=== PATIENT | female | born 1975 | race Caucasian/White ===

== ENCOUNTER → 2020-09-10 12:54 | Outpatient (CLI) | payer BC, SELFPAY ==
--- NOTE | ~2020-09-10 | XR_ITS ---
EXAMINATION: XR abdomen/kub 1V INDICATION: Right ureteral stone TECHNIQUE: Supine views of the abdomen were obtained on 2 radiographs. COMPARISON: None FINDINGS: There is a 2 mm calcification in the right pelvis which could be within the distal right ur eter. Additional pelvic calcifications have the appearance of phleboliths. The bowel gas pattern is n ormal. There are no dilated loops of bowel. IMPRESSION: 1. Possible right distal ureteral stone. Reviewed, dictated and finalized at location A.
== END ==
PROVIDERS: PCP Internal Medicine; Visit Provider Urology
DX: N20.1 Calculus of ureter (principal)
CPT/HCPCS: 74018

== ENCOUNTER 2020-09-12 01:52 | Day surgery (SDC) | payer BC, SELFPAY ==
[2020-09-11 08:40] VITALS: BMI 32.2
--- NOTE | 2020-09-11 10:04 | WPDANESEPPF ---
Anes - Initial Pre Proc Eval Procedure: Operation Date: 09/12/20 14:30 Proposed Procedures p Cystoscopy, Right Ureteroscopy, Right Stone Extraction - Ifeanyi Mcdaniel MD Date/Time: 09/11/20 10:04 Surgeon: Ifeanyi Mcdaniel MD Pre Op Diagnosis: Right UVJ Patient Data Age: 44 Gender: F Height: 1.6 m Weight: 82.55 kg Allergies Allergy/AdvReac Type Severity Reaction Status Date / Time No Known Allergies Allergy Verified 09/12/20 13:30 Home Medications Medication Instructions Recorded Confirmed Type ciprofloxacin HCl 250 mg PO BID 09/11/20 09/12/20 History magnesium 1 tablet PO DAILY 09/11/20 09/12/20 History tamsulosin 0.4 mg PO HS 09/11/20 09/12/20 History Patient hx anesthesia problems: none Family hx anesthesia problems: none [facility] [place] Past Medical History Medical History (Updated 09/11/20 @ 10:05 by José Malone DO) Endometriosis Migraine Palpitations PONV (postoperative nausea and vomiting) Surgical History Surgical History (Updated 09/11/20 @ 10:05 by José Malone DO) History of hysterectomy History of laparoscopic cholecystectomy History of tonsillectomy Social History Social History Smoking status: Never smoker Alcohol intake: current Alcohol use details: OCCASIONAL WEEKENDS Substance use: never Substance use type: does not use Living arrangements: with family Spiritual care concerns: No Anes - Eval Final PreProcedure Day of Procedure 09/11/20 10:04 Patient weight: obese Heart: regular rate and rhythm Lungs: clear to auscultation and normal air movement Airway: Mallampati scale class II Neurological: alert and oriented Last oral intake: >/= 8 hours ASA classification: II Emergent: no Anesthetic plan: proceed Anesthesia type and monitoring: general LMA and standard monitoring Informed Consent: The patient's anesthetic plan and its attendant risks and benefits were discussed with the patient/family/POA. Questions were solicited and answers provided to the satisfaction of the patient/family/POA.
--- NOTE | ~2020-09-12 | XR_ITS ---
EXAMINATION: XR fluoroscopy no charge EXAM DATE: 09/12/2020 14:27 INDICATION: Right ureteroscopy. TECHNIQUE: Fluoroscopy used during right ureteroscopy performed by Dr. Ifeanyi Mcdaniel MD. Radiol ogist was not present for the exam. Fluoroscopy was used with fluoroscopic time of 61 seconds. The D AP for this procedure was 215 radcm2. A total of 3 images sent to PACS from the exam. FINDINGS: Unremarkable gum mixer images. Correlate with procedure note. IMPRESSION: Fluoroscopy used during right ureteroscopy. Reviewed, dictated and finalized at location B.
--- NOTE | 2020-09-12 07:24 | WPDHPUPDATE1 ---
History and Physical Update Update Date/Time: 09/12/20 07:24 History and Physical has been reviewed, including an updated exam of the patient. There are NO changes in the patient's condition. Risks, benefits, and alternatives have been discussed and questions answered. Patient agrees to proceed with procedure.
[2020-09-12 13:32] VITALS: BP 124/65; PULSE 84; RESP 16; TEMP 36.7; O2SAT 100
[2020-09-12] MEDS: LACTATED RINGERS 1,000 ML 30 ML IV CONT (13:45)
[2020-09-12] MEDS: ceFAZolin 2 GM/D5W 50 ML 2 GM/50 ML BAG IVPB (14:00)
[2020-09-12] MEDS: LIDOCAINE HCL 2% GEL UROJET 10 ML PKG MUCOUS MEM (14:11)
[2020-09-12 14:30] VITALS: BP 122/65; PULSE 104; RESP 15; O2SAT 100
--- NOTE | 2020-09-12 14:36 | P.OP_ITS ---
Procedure Note - Detailed Date of procedure: 09/12/20 Pre-op diagnosis: Right distal ureteral stone Post-op diagnosis: other (Spontaneously passed right ureteral stone) Procedure performed: Cystoscopy, right ureteroscopy Description of procedure: this patient was brought to the operative suite where she was prepped and draped in routine sterile fashion while in a dorsal lithotomy position. This was done after the uneventful induction of a general anesthetic. Cystoscopy was undertaken with a 19 F rigid cystoscope. Bladder neck and urethra were endoscopically normal. Bladder mucosa was normal without evidence of intravesical foreign body or neoplasm. She had a single orthotopic ureteral orifice bilaterally. 0.035 in glidewire was advanced into the right ureter in the distal ureter was dilated with an 8 F 10 F dilator. Ureteroscopy was undertaken with a short tapered semi-rigid ureteral scope. There are no identifiable ureteral calculi. Ureteroscopy was undertaken to the mid ureter. There is an area of hyperemia where her stone was recently obstructing. Scopes and wires removed and she was taken recovery room good condition. Anesthesia: GLMA Surgeon: Ifeanyi Mcdaniel MD Veterans Service Representative: None Estimated blood loss (mL): 0 Drains: No Packing: No Pathology: none sent Complications: No immediate complications Condition: stable Disposition: PACU
[2020-09-12 15:00] VITALS: BP 143/66; PULSE 69; RESP 14
[2020-09-12 15:20] VITALS: BP 137/61; PULSE 70; RESP 16
== END 2020-09-12 15:45 | disposition home or self-care (01) ==
PROVIDERS: PCP Internal Medicine; Visit Provider Urology
PROC: (CPT 52352; principal; 2020-09-12 14:30)
DX: N20.1 Calculus of ureter (principal); N80.9 Endometriosis, unspecified; R00.2 Palpitations; E66.9 Obesity, unspecified; Z68.32 Body mass index [BMI] 32.0-32.9, adult
CPT/HCPCS: 52351; A9270; C1769; J0690; J1100; J2250; J2405; J2704; J3010; J7120

== ENCOUNTER 2024-08-04 10:04 | Outpatient (CLI) | payer OTHER, SELFPAY ==
--- NOTE | ~2024-08-04 | US_ITS ---
EXAMINATION: US thyroid DATE: 08/04/2024 11:45 INDICATION: Disorder of skin. TECHNIQUE: Multiple ultrasound images of the thyroid were obtained. COMPARISON: None. FINDINGS: The right thyroid lobe measures 5.6 x 1.3 x 1.9 cm. The left thyroid lobe measures 5.0 x 0.9 x 1.6 c m. In the right thyroid lobe, there is a 7 mm solid, hypoechoic, wider than tall nodule with smooth margin without echogenic foci (TI-RADS TR4). In the right thyroid lobe, there is a 3 mm nodule. IMPRESSION: 1. Small thyroid nodules, likely not clinically significant. No follow-up is needed. Reviewed, dictated and finalized at location A. IMPRESSION: 1. Small thyroid nodules, likely not clinically significant. No follow-up is ne eded.
--- OUTSIDE RECORDS SUMMARY | 2024-08-04 10:55 | XMS_ITS | Data Portability ---
Author Organization [facility] Address [address] [place] [address] Care Team Providers Care Locks Inspector Name Role Phone RANJITH BAGLEY Primary Care Provider [phone] Assessment Encounter Date Assessment Date Assessment LastModified by Organization Details LastModified Time 12/31/2023 12/31/2023 we will obtain blood work was told to stay up-to-date on mammograms colon cancer screenings dispensary clerk visits and immunizations follow up six-month [email or web address] Not available 01/01/2024 12:26:45 06/28/2024 06/28/2024 no clear-cut discernible lesion but she will get a thyroid ultrasound also modified barium swallow if that is negative consider ENT versus CT of the neck with contrast. Transderm scopolamine patch for motion sickness for a cruise. See me in 6 months. Low-fat diet. We are trying to obtain her dispensary clerk records Pap smear and mammogram [email or web address] Not available 06/28/2024 21:20:08 Plan of Treatment Reminders Order Date Submit Date Provider Last Modified By Organization Details Last Modified Time Details Appointments ANY 15 2024 03:15P Sukhdev Bagley MD Not available Not available Not available Lab CBC w/ auto diff 2023 024 [facility], [address] [facility], [place], [address], 01/08/2024 00:29:51 CMP, serum or plasma 2023 024 [facility], [address] , [place], [address], 01/08/2024 00:29:50 lipid panel, serum 2023 024 [facility], [address], [place], [address], 01/08/2024 00:29:49 noninvasi ve colorecta l cancer DNA + occult blood screening , QL, stool 2023 024 [facility] (Cologuard Orders Only), [address], [address], [place], [address], 02/06/2024 07:11:23 HbA1c (hemoglob in A1c), blood 2023 024 [facility], [address], [place], [address], 01/08/2024 00:29:51 Referral None recorded. Procedures None recorded. Surgeries None recorded. Imaging US, thyroid 2024 025 [facility], [address], [address], [place], [address], 07/27/2024 11:14:25 [place], modified barium swallow study 2024 025 [facility] (Imaging), [address], [place], [address], 07/27/2024 11:14:25 Medication Orders Transderm -Scop 1 mg over 3 days transderm al patch 2024 025 [id number], [address], [place], [place], [id number], 06/28/2024 21:09:31 Patient TargetsNo targets recorded. Patient Instructions Encounter Date Encounter Id Patient Instructions Last Modified By Organization Details Last Modified Time 06/28/2024 [id number] A healthy lifestyle: care instructions [email or web address] Not available 06/28/2024 21:09:31 Reason for Referral None Reported. Results Created Date Observation Date Name Description Value Unit Range Abnormal Flag Note LastModifiedBy Organization Detail LastModifiedTime 01/07/20 24 01/07/2024 LIPID PANEL , STAND JOSEPH cholesterol, total 204 mg/dL <200 high Not Available [facility] [address] [place], [address], 01/08/2024 00:29:49 01/07/2001/07/2024 LIPID PANEL , STAND JOSEPH HDL cholesterol 49 mg/dL > or = 50 low Not Available [facility] [address] [place], [address], 01/08/2024 00:29:49 01/07/2001/07/2024 LIPID PANEL , STAND JOSEPH triglyceride s 98 mg/dL <150 normal Not Available [facility] [place] [address] [place], [address], 01/08/2024 00:29:49 01/07/20 24 01/07/2024 LIPID PANEL , STAND JOSEPH LDL-choleste rol 135 mg/dL _(anila c) high Refer ence range : <100 Dickson able range <100 mg/dL for prima ry preve ntion ; <70 mg/dL for patie nts with CHD or diabe tic patie nts with > or = 2 CHD risk facto rs. LDL-C is now calcu lated using the Dari n-Hop kins augustinu ganesh n, which is a valid ated novel jordi santamaria accur acy than the Fried trenton equat ion in the estim ation of LDL-C . Dari serrano SS et al. SLIME. 2013; 310(1 9): 2061- 2068 (http ://ed ucati on.Qu Laisha TriplePulse. com/f aq/FA Q164) Not Available [facility] [address] [address] , [place], [address], 01/08/2024 00:29:49 01/07/20 24 01/07/2024 LIPID PANEL , STAND JOSEPH chol/HDLC ratio 4.2 (calc ) <5.0 normal Not Available [address], [address], 01/08/2024 00:29:49 01/07/20 24 01/07/2024 LIPID PANEL , STAND JOSEPH non HDL cholesterol 155 mg/dL _(anila c) <130 high For patie nts with diabe mukul plus 1 major ASCVD risk facto r, treat ing to a non-H DL-C goal of <100 mg/dL (LDL- C of <70 mg/dL ) is consi dered a thera peuti c optio n. Not Available [address], [address], 01/08/2024 00:29:49 01/07/20 24 01/07/2024 COMPR EHENS BERNARDO METAB OLIC PANEL glucose 89 mg/dL 65-99 normal Fasti ng refer ence inter hang Not Available [address], [address], 01/08/2024 00:29:50 01/07/20 24 01/07/2024 COMPR EHENS BERNARDO METAB OLIC PANEL urea nitrogen (BUN) 8 mg/dL 7-25 normal Not Available [address], [address], 01/08/2024 00:29:50 01/07/20 24 01/07/2024 COMPR EHENS BERNARDO METAB OLIC PANEL creatinine 0.69 mg/dL 0.50-1 .03 normal Not Available [address], [address], 01/08/2024 00:29:50 01/07/20 24 01/07/2024 COMPR EHENS BERNARDO METAB OLIC PANEL eGFR 106 mL/mi n/1.7 3m2 > or = 60 normal Not Available [facility] [address] [place], [address], 01/08/2024 00:29:50 01/07/20 24 01/07/2024 COMPR EHENS BERNARDO METAB OLIC PANEL BUN/creatini ne ratio SEE NOTE: (calc ) 6-22 Not Repor maury: BUN and Creat inine are withi n refer ence range . Not Available [address], [address], 01/08/2024 00:29:50 01/07/20 24 01/07/2024 COMPR EHENS BERNARDO METAB OLIC PANEL sodium 138 mmol/ L 135-14 6 normal Not Available [address], [address], 01/08/2024 00:29:50 01/07/20 24 01/07/2024 COMPR EHENS BERNARDO METAB OLIC PANEL potassium 3.9 mmol/ L 3.5-5. 3 normal Not Available [address], [address], 01/08/2024 00:29:50 01/07/20 24 01/07/2024 COMPR EHENS BERNARDO METAB OLIC PANEL chloride 106 mmol/ L 98-110 normal Not Available [address], [address], 01/08/2024 00:29:50 01/07/20 24 01/07/2024 COMPR EHENS BERNARDO METAB OLIC PANEL carbon dioxide 23 mmol/ L 20-32 normal Not Available [address], [address], 01/08/2024 00:29:50 01/07/20 24 01/07/2024 COMPR EHENS BERNARDO METAB OLIC PANEL calcium 9.4 mg/dL 8.6-10 .4 normal Not Available [address], [address], 01/08/2024 00:29:50 01/07/20 24 01/07/2024 COMPR EHENS BERNARDO METAB OLIC PANEL protein, total 6.5 g/dL 6.1-8. 1 normal Not Available [address] [place], [address], 01/08/2024 00:29:50 01/07/20 24 01/07/2024 COMPR EHENS BERNARDO METAB OLIC PANEL albumin 4.4 g/dL 3.6-5. 1 normal Not Available [address], [address], 01/08/2024 00:29:50 01/07/20 24 01/07/2024 COMPR EHENS BERNARDO METAB OLIC PANEL globulin 2.1 g/dL_ (calc ) 1.9-3. 7 normal Not Available [address], [address], 01/08/2024 00:29:50 01/07/20 24 01/07/2024 COMPR EHENS BERNARDO METAB OLIC PANEL albumin/glob ulin ratio 2.1 (calc ) 1.0-2. 5 normal Not Available [address], [address], 01/08/2024 00:29:50 01/07/20 24 01/07/2024 COMPR EHENS BERNARDO METAB OLIC PANEL bilirubin, total 0.6 mg/dL 0.2-1. 2 normal Not Available [address], [address], 01/08/2024 00:29:50 01/07/20 24 01/07/2024 COMPR EHENS BERNARDO METAB OLIC PANEL alkaline phosphatase 59 U/L 37-153 normal Not Available [facility] [place] [address] [place], [address], 01/08/2024 00:29:50 01/07/20 24 01/07/2024 COMPR EHENS BERNARDO METAB OLIC PANEL AST 19 U/L 10-35 normal Not Available [address], [address], 01/08/2024 00:29:50 01/07/20 24 01/07/2024 COMPR EHENS BERNARDO METAB OLIC PANEL ALT 22 U/L 6-29 normal Not Available [address], [address], 01/08/2024 00:29:50 01/07/20 24 01/07/2024 CBC (INCL UDES DIFF/ PLT) white blood cell count 4.8 thous and/u L 3.8-10 .8 normal Not Available [address], [address], 01/08/2024 00:29:51 01/07/20 24 01/07/2024 CBC (INCL UDES DIFF/ PLT) red blood cell count 4.93 karine on/uL 3.80-5 .10 normal Not Available [address], [address], 01/08/2024 00:29:51 01/07/20 24 01/07/2024 CBC (INCL UDES DIFF/ PLT) hemoglobin 14.6 g/dL 11.7-1 5.5 normal Not Available [address], [address], 01/08/2024 00:29:51 01/07/20 24 01/07/2024 CBC (INCL UDES DIFF/ PLT) hematocrit 46.0 % 35.0-4 5.0 high Not Available [address], [address], 01/08/2024 00:29:51 01/07/20 24 01/07/2024 CBC (INCL UDES DIFF/ PLT) MCV 93.3 fL 80.0-1 00.0 normal Not Available [address], [address], 01/08/2024 00:29:51 01/07/20 24 01/07/2024 CBC (INCL UDES DIFF/ PLT) MCH 29.6 pg 27.0-3 3.0 normal Not Available [address], [address], 01/08/2024 00:29:51 01/07/20 24 01/07/2024 CBC (INCL UDES DIFF/ PLT) MCHC 31.7 g/dL 32.0-3 6.0 low Not Available [address], [address], 01/08/2024 00:29:51 01/07/20 24 01/07/2024 CBC (INCL UDES DIFF/ PLT) RDW 12.6 % 11.0-1 5.0 normal Not Available [address], [address], 01/08/2024 00:29:51 01/07/20 24 01/07/2024 CBC (INCL UDES DIFF/ PLT) platelet count 215 thous and/u L 140-40 0 normal Not Available [address], [address], 01/08/2024 00:29:51 01/07/20 24 01/07/2024 CBC (INCL UDES DIFF/ PLT) MPV 10.8 fL 7.5-12 .5 normal Not Available [address], [address], 01/08/2024 00:29:51 01/07/20 24 01/07/2024 CBC (INCL UDES DIFF/ PLT) absolute neutrophils 2803 cells /uL 1500-7 800 normal Not Available [employer] [facility] [address], [address], 01/08/2024 00:29:51 01/07/20 24 01/07/2024 CBC (INCL UDES DIFF/ PLT) absolute lymphocytes 1546 cells /uL 850-39 00 normal Not Available [facility] [facility] [address], [address], 01/08/2024 00:29:51 01/07/20 24 01/07/2024 CBC (INCL UDES DIFF/ PLT) absolute monocytes 293 cells /uL 200-95 0 normal Not Available [address], [address], 01/08/2024 00:29:51 01/07/20 24 01/07/2024 CBC (INCL UDES DIFF/ PLT) absolute eosinophils 139 cells /uL 15-500 normal Not Available [address], [address], 01/08/2024 00:29:51 01/07/20 24 01/07/2024 CBC (INCL UDES DIFF/ PLT) absolute basophils 19 cells /uL 0-200 normal Not Available [address], [address], 01/08/2024 00:29:51 01/07/20 24 01/07/2024 CBC (INCL UDES DIFF/ PLT) neutrophils 58.4 % normal Not Available [facility] [facility] [address], [address], 01/08/2024 00:29:51 01/07/20 24 01/07/2024 CBC (INCL UDES DIFF/ PLT) lymphocytes 32.2 % normal Not Available [address], [address], 01/08/2024 00:29:51 01/07/20 24 01/07/2024 CBC (INCL UDES DIFF/ PLT) monocytes 6.1 % normal Not Available [address], [address], 01/08/2024 00:29:51 01/07/20 24 01/07/2024 CBC (INCL UDES DIFF/ PLT) eosinophils 2.9 % normal Not Available [address], [address], 01/08/2024 00:29:51 01/07/20 24 01/07/2024 CBC (INCL UDES DIFF/ PLT) basophils 0.4 % normal Not Available [facility] [address] [address], [place], [address], 01/08/2024 00:29:51 01/07/20 24 01/07/2024 HEMOG LOBIN A1C hemoglobin A1C 5.4 %_of_ total _HGB <5.7 normal For the purpo se of scree marleny for the prese nce of diabe mukul: <5.7% Consi stent with the absen ce of diabe mukul 5.7-6 .4% Consi stent with incre ased risk for diabe mukul (pred iabet es) > or =6.5% Consi stent with diabe mukul This assay resul t is consi stent with a decre ased risk of diabe mukul. Curre ntly, no conse nsus exist s lovely ayala use of hemog lobin A1c for diagn osis of diabe mukul in child lis. Accor jamie to Ameri can Diabe mukul Assoc iatio n (ADA) guide lines , hemog lobin A1c <7.0% repre sents optim al contr ol in non-p regna nt diabe tic patie nts. Diffe rent metri cs may apply to speci fic patie nt popul ation s. Stand ards of Medic al Care in Diabe mukul(A DA). This test was perfo rmed on the Ute skyler c503 platf orm. Effec tive , a dewayne e in test platf orms from the [facility]bot t Ar[employer] tect to the Ute skyler c503 may have shift ed HbA1c resul ts ana red to histo rical resul ts. Based on labor atory valid ation testi ng condu cted at [employer] , the Ute platf orm relat bernardo to the iOculiot t platf orm had an avera ge incre ase in HbA1c value of < or = 0.3%. This diffe rence is withi n accep maury varia bilit y estab lishe d by the Natio nal Glyco hemog lobin Stand ardiz ation Progr am. Note that not all indiv idual s will have had a shift in their resul ts and direc t ana rison s betwe en histo rical and curre nt resul ts for testi ng condu cted on diffe rent platf orms is not recom duglas d. Not Available [facility] [address], [place], [address], 01/08/2024 00:29:51 02/01/2002/01/2024 COLOG UARD cologuard result reportable NEGATI VE negati ve normal NEGAT BERNARDO TEST RESUL T. A negat bernardo Colog uard resul t indic ates a low likel ihood that a color ectal cance r (CRC) or advan desi adeno ma (jasen omato us polyp s with more advan desi pre-m align ant featu res) is prese nt. The chanc e that a perso n with a negat bernardo Colog uard test has a color ectal cance r is less than 1 in 1500 (nega tive predi ctive value >99.9 %) or has an advan desi adeno ma is less than 5.3% (nega tive predi ctive value 94.7% ). These data are based on a prosp ectiv e cross -sect ional study of 10,00 0 indiv idual s at [facility] risk for color ectal cance r who were scree favio with both Colog uard and colon oscop y. (Beena Hernandez et al, N Engl J Med 2014; 370(1 4):12 86-12 97) The aaron l value (refe rence range ) for this assay is negat bernardo. COLOG UARD RE-SC REENI NG RECOM MENDA TION: Perio dic color ectal cance r scree marleny is an impor tant part of preve ntive healt hcare for asymp tomat ic indiv idual s at [facility] risk for color ectal cance r. Follo wing a negat bernardo Colog uard resul t, the Ameri can Cance r Socie ty and U.S. Multi -Soci ety Task Force scree marleny guide lines recom mend a Colog uard re-sc madonna cronin inter hang of 3 years . Refer ences : Lupe can Cance r Socie ty Guide line for Color ectal Cance r Scree marleny: https ://jj w.can cer.o rg/ca ncer/ colon -rect al-ca ncer/ detec tion- diagn osis- stagi ng/ac s-rec ommen datio ns.ht ml.; Braulio DK, Taz bedoya CR, Crissy rich JK, Color ectal Cance r Scree marleny: Recom menda tions for Physi cians and Patie nts from the U.S. Multi -Soci ety Task Force on Color ectal Cance r Scree marleny , Dave jacksonntandrea rolog y 2017; 112:1 016-1 030. TEST DESCR IPTIO N: Tabor site algor ithmi c fernando sis of stool DNA-b lisandro pacheco with hemog lobin immun oassa y. Quant itati ve value s of indiv idual bioma rkers are not repor table and are not assoc iated with indiv idual bioma rker resul t refer ence range s. Colog uard is inten ded for color ectal cance r scree marleny of adult s of eithe r sex, 45 years or older , who are at [facility] for color ectal cance r (CRC) . Colog uard has been appro tam for use by the U.S. FDA. The perfo rmanc e of Colog uard was estab lishe d in a cross secti onal study of [facility] adult s aged 50-84 . Colog uard perfo rmanc e in patie nts ages 45 to 49 years was estim ated by janet-g tarap fernando sis of near- age group s. Colon oscop ies perfo rmed for a posit bernardo resul t may find as the most clini shelbi signi ficedgar t lesio n: color ectal cance r [4.0% ], advan desi adeno ma (incl uding sessi le mary maury polyp s great er than or equal to 1cm diame ter) [20%] or non- advan desi adeno ma [31%] ; or no color ectal neopl rubi [45%] . These estim ates are deriv ed from a prosp ectiv e cross -sect ional pretty farmer study of ,00 0 indiv idual s at [place] [facility] risk for color ectal cance r who were scree favio with both Colog uard and colon oscop y. (Beena Hernandez et al, N Engl J Med 2014; 370(1 4):12 86-12 97.) Colog uard may produ ce a false negat bernardo or false posit bernardo resul t (no color ectal cance r or preca ncero us polyp prese nt at colon oscop y follo w up). A negat bernardo Colog uard test resul t does not guara ntee the absen ce of CRC or advan desi adeno ma (pre- cance r). The curre nt Colog uard pretty farmer inter hang is every 3 years . (Amer ican Cance r Socie ty and U.S. Multi -Soci ety Task Force ). Colog uard perfo rmanc e data in a 0 patie nt pivot al study using colon oscop y as the refer ence metho d can be acces sed at the follo wing locat ion: www.e xactl abs.c om/re maite . Addit ional descr iptio n of the Colog uard test proce ss, warni ngs and preca ution s can be found at www.c ologu joseph.c om. Not Available [employer] (Cologuard Orders Only) [address], [place], [address], 02/06/2024 07:11:23 05/08/20 24 02/21/2019 pretty QUIJANO digit al, bilat eral No observ ation record ed. BARCODE Not Available 2023 20:07:20 05/08/20 24 02/17/2023 pretty QUIJANO digit al, bilat eral No observ ation record ed. BARCODE Not Available 2023 20:07:20 Result Notes None recorded. Problems Name Problem SNOMED Code Status Onset Date Resolution Date Notes Provider Name and Address Organization Details Recorded Time Lesion of neck 022733915 Active 2024 Low Ovalle MA null, [place] - [facility] 16:57:47 Motion sickness 12606738 Active 2024 Low Ovalle [place], [place] [facility] 16:57:48 Influenza vaccination declined 160309619 Active 2024 Ranjith Bagley MD Attn: Irvingin g,[address], [place], [address], [place] [facility] 21:19:57 Tetanus vaccination declined by patient 256721041 Active 2024 Ranjith Bagley MD Attn: Accountin g,[address], [place], [address], [place] [facility] 21:19:58 HIV screening declined 1093239398806 00 Active 2024 Ranjith Bagley MD Attn: Accountin g,[address], [place], [address], [place] [facility] 21:20:00 Pneumococca l vaccination declined 070092434 Active 2024 Ranjith Bagley MD Attn: Accountin g,[address] [facility], [place], [address], [place] [facility] 21:20:04 Problem Notes None recorded. Procedures Surgical History Date Name Laterality Status Provider Name and Address Organization Details Recorded Time 05/10/19 04 Total hysterectomy completed Chiqui Macedo [place] - [facility] 12/31/2023 12:36:58 05/10/18 97 Tubal Ligation completed JAYE Ferreira - [facility] 12/31/2023 12:36:49 05/10/18 79 Tonsillectomy completed JAYE Ferreira - [facility] 12/31/2023 12:36:36 Imaging Results Imaging Date Name Status LastModified by [facility] Details LastModified Time 02/21/2019 MAMMO, screening, digital, bilateral completed BARCODE Information not available 05/08/2024 20:07:20 02/17/2023 MAMMO, screening, digital, bilateral completed BARCODE Information not available 05/08/2024 20:07:20 Procedure Notes None recorded. Medical Equipment None Reported. Allergies No known drug allergies Medications Name Sig Start Date Stop Date Status Note LastModified by Organization Details LastModified Time scopolamine 1 mg over 3 days transdermal patch APPLY 1 PATCH TO THE SKIN BEHIND THE EAR 4 HOURS BEFORE LEAVING AND CHANGE EVERY 72 HOURS active Not Available Not Available No t Available mecobalamin (vitamin B12) 10,000 mcg solution for injection Take by injection route. active Not Available Not Available No t Available semaglutide (weight loss) active Stated she is taking the 1.5 but don't see a 1.5mg Not Available Not Available Not Available Vitals Date Recorded Body height Body mass index (BMI) Body weight Heart rate Oxygen saturation Oxygen saturation in Arterial blood by Pulse oximetry Systolic blood pressure Diastolic blood pressure Provider Name and Address Organization Details Last Updated DateTime 4 160.02 cm 28.6 kg/m2 25034.8 1 g 91 /min 98 % 98 % 130 mm[Hg] 70 mm[Hg] Chiqui Macedo MA [facility] 4 12:39:45 Date Recorded Body height Body mass index (BMI) Body weight Heart rate Oxygen saturation Oxygen saturation in Arterial blood by Pulse oximetry Systolic blood pressure Diastolic blood pressure Provider Name and Address Organization Details Last Updated DateTime 5 160.02 cm 26.6 kg/m2 39449.8 6 g 84 /min 98 % 98 % 110 mm[Hg] 76 mm[Hg] Leida Figueroa MA [facility] 5 16:13:34 Social History Question Answer Notes LastModified by Organizat ion Details LastModified Time Tobacco Smoking Status Never Smoker Chiqui Macedo MA null, [facility] 12/31/2023 12:34:50 Do You Have An Advance Directive? No Information not available 12/31/2023 What Is Your Level Of Alcohol Consumption? Occasional Information not available 12/31/2023 How Many Years Have You Consumed Alcohol? 30 Information not available 12/31/2023 Are You Blind Or Do You Have Difficulty Seeing? Yes Contacts Information not available 12/31/2023 What Is Your Level Of Caffeine Consumption? Occasional Information not available 12/31/2023 In The 14 Days Before Symptom Onset, Have You Had Close Contact With A Laboratory-confi rmed COVID-19 While That Case Was Ill? No Information not available 12/31/2023 In The 14 Days Before Symptom Onset, Have You Had Close Contact With A Person Who Is Under Investigation For COVID-19 While That Person Was Ill? No Information not available 12/31/2023 Have You Been To An Area Known To Be High Risk For COVID-19? No Information not available 12/31/2023 Are You Currently Employed? Yes Information not available 12/31/2023 Are You Deaf Or Do You Have Serious Difficulty Hearing? No Information not available 12/31/2023 What Type Of Diet Are You Following? 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 No Information not available 12/31/2023 What Was The Date Of Your Most Recent Tobacco Screening? 06/28/2024 [email or web address] Information not available 06/28/2024 What Is Your Relationship Status? Information not available 12/31/2023 Do You Use Your Seat Belt Or Car Seat Routinely? Yes Information not available 12/31/2023 Do You Have Smoke And Carbon Monoxide Detectors In Your Home? Yes Information not available 12/31/2023 Do You Feel Stressed (tense, Restless, Nervous, Or Anxious, Or Unable To Sleep At Night)? [id number] Sleeping At Night Information not available 12/31/2023 Do You Use Any Illicit Or Recreational Drugs? No Information not available 12/31/2023 Do You Use Sunscreen Routinely? Yes Information not available 12/31/2023 Has Tobacco Cessation Counseling Been Provided? No Information not available 12/31/2023 Do You Or Have You Ever Used Any Other Forms Of Tobacco Or Nicotine? No Information not available 12/31/2023 Sex: Female Functional Status Question Answer Note LastModified by Organization D etails LastModified Time Are you able to care for yourself? Yes Information n ot available 12/31/2023 What is your exercise level? None Information not available 12/31/2023 Mental Status None recorded. Family History Nothing Reported. Medical History Condition Response Coronary Artery Disease N Other N High Blood Pressure N Atrial Fibrillation N Thyroid Problems N Kidney or Bladder Problems N Depression N COPD N Blood Clots N GI Problems N Have you had a mammogram in the last yea r? N Skin Problems N Anemia N Heart Attack (NM) N Anxiety Disorder N Diabetes N Muscle, Joint, or Bone Problems N Seizures/Epilepsy N Have you had a colonoscopy in the last 1 0 years? N Acid Reflux (GERD) N Cancer N Stroke N Asthma N Allergies N Have you had a PSA blood test in the las t year? N High Cholesterol N Hepatitis N Liver Disease N Headaches N Osteoporosis N Heart Failure N Gynecological History Statement/Question Response If Post Menopausal, Age at Menopause 27 Obstetrics History GPAL:G 2 P 2 0 0 2 Type Value Full Term 2 Living 2 Total 2 Immunizations Vaccine Type Date Status Note Provider Nam e and Address Organization Details Recorded Time COVID-19, mRNA, LNP-S, PF, 30 mcg/0.3 mL dose 11/18/2020 completed JAYE [place]ell, [place] - [facility] 06/28/2024 16:06:27 COVID-19, mRNA, LNP-S, PF, 30 mcg/0.3 mL dose 12/09/2020 completed Leida Figueroa [place] null, [place] - [facility] 06/28/2024 16:06:27 COVID-19, mRNA, LNP-S, PF, 30 mcg/0.3 mL dose, elmer-sucrose 06/17/2021 completed Leida Figueroa [place] null, [place] - [facility] 06/28/2024 16:06:27 Past Encounters Encounter ID Performer Location Encounter Start Date Encounter Closed Date Diagnosis/Indication Diagnosis SNOMED-CT Code Diagnosis ICD10 Code Diagnosis Note [id number] MD Belen Marino (Adult Med) [address] [place] [address] 12/31/2023 12:01:36 12/31/2023 13:32:10 Obesity 972490853 E66.9 Diabetes m ellitus screening 534953416 Z13.1 Screening for cardiovascular system disease 546848770 Z13.6 Screening for malignant neoplasm of colon 964543030 Z12.11 [id number] Ranjith Bagley MD [facility] (Adult Med) [address] [place] [address] 06/28/2024 15:51:45 06/28/2024 17:00:39 Body mass index 25-29 - overweight 500333499 Z68.26 Overweight 184823738 E66 .3 Lesion of neck 731124689 L98.9 Motion sickness 19908759 T75.3XXA Pneumococc al vaccination declined 477521420 Z28.21 HIV screen ing declined 4757197396 33745 Z53.20 Tetanus va ccination declined by patient 871470756 Z28.21 Influenza vaccination declined 102478746 Z28.21 Health Concerns Section Related Observation LastModified by Organization Detai ls LastModified Time None Recorded Concern Status LastModified by Organization Details LastModified Time None Recorded Advance Directives Directive N: Payers Encounter Date Sequence Insurance Name Policy Number Policy Oshea Covered Member ID Oshea Member ID Guarantor Name 12/31/2023 1 [facility] [id number] Sandy Ni [id number] Sandy Ni 06/28/2024 1 [facility] [id number] Sandy Ni [id number] Sandy Ni Notes Date Note Type Note Provider Name and Address Organization Details Recorded Time 12/31/2023 text/html 48-year-old come s in reestablishing care obesity taking generic semaglutide has lost about 30 or 40 lb also taking some B12 injection meds semaglutide and B12 denies allergies surgeries family history of hypertension mild alcohol use no tobacco Ranjith Bagley MD Attn: Accounting, 1 [facility], [place], [address], [place] [facility] 01/01/2024 12:27:04 06/28/2024 text/html hyperlipidemia i s trying to follow a low-fat diet. Going on a cruise and needs she needs some medicine for motion sickness. She has also described when she is lying down and turns her head to the left that she notices some pain and discomfort left side of her neck worse with swallowing and she has been on GLP 1 inhibitors Ranjith Bagley MD Attn: Accounting,[address] [facility], [place], [address], [facility] - [facility] 06/28/2024 21:20:28 OBGyn Episode No OBEpisode recorded.
--- OUTSIDE RECORDS SUMMARY | 2024-08-04 10:55 | XMS_ITS | CONTINUITY OF CARE DOCUMENT ---
Author Name lavon doll Address Unknown Organization [facility] Address [id number] [place] [address] [address] [place] [address] Phone [phone] Care Team Providers Care Supervisor Cutting Department Name Role Phone Reid HACKETT, Paulo Unavailable [phone] RANJITH SMALLWOOD MD Unavailable RANJITH SMALLWOOD MD Unavailable PROBLEMS Condition Status Date Provider Notes Chest pain active Chio Chrun INS[employer]ANCE PROVIDERS Payer name Policy type / Coverage type [place] red constitution party ID [facility] Blue [facility] [id number] HISTORY OF PROCEDURES Procedure Date Procedure Name Provider Procedure Notes S tatus Event Monitor Paulo mendiola
== END 2024-08-04 10:05 | disposition home or self-care (01) ==
PROVIDERS: PCP Internal Medicine; Visit Provider Internal Medicine
DX: E04.2 Nontoxic multinodular goiter (principal)
CPT/HCPCS: 76536

== ENCOUNTER 2024-08-15 08:57 | Outpatient (CLI) | payer OTHER, SELFPAY ==
--- NOTE | ~2024-08-15 | XR_ITS ---
MODIFIED ESOPHAGRAM HISTORY: Lesion of neck TECHNIQUE: Modified barium esophagram was performed on 08/15/2024. I administered fluoroscopy and perfo rmed the exam with speech pathologist. Patient was seated for lateral fluoroscopic imaging for inges tion of thin liquids, pudding, solids and quantified amounts, followed by thin liquids in uncontrolle d amounts. This was recorded on tape. A single fluoroscopic spot image was also recorded. The DAP for this procedure was explained 806 Gycm2. The amount of fluoroscopy time used during this procedure wa s 1.2 minutes. FINDINGS: Oral stage: Adequate function. Pharyngeal stage: Adequate function. Cervical/esophageal stage: Adequate function. IMPRESSION: Patient tolerated regular consistency oral feedings in the upright position. Please ruben elate with speech pathologist findings and specific feeding recommendations. Reviewed, dictated and finalized at location B. IMPRESSION: Patient tolerated regular consistency oral feedings in the upright position. Please correlate with speech pathologist findings and specific feedi ng recommendations.
--- OUTSIDE RECORDS SUMMARY | 2024-08-15 09:29 | XMS_ITS | Data Portability ---
Author Organization [facility] Address [address] [place] [address] Care Team Providers Care Customer Experience Retail Clerk Name Role Phone RANJITH BAGLEY Primary Care Provider Assessment Encounter Date Assessment Date Assessment LastModified by Organization Details LastModified Time 12/31/2023 12/31/2023 we will obtain blood work was told to stay up-to-date on mammograms colon cancer screenings assistant softball coach visits and immunizations follow up six-month [email or web address] Not available 01/01/2024 12:26:45 06/28/2024 06/28/2024 no clear-cut discernible lesion but she will get a thyroid ultrasound also modified barium swallow if that is negative consider ENT versus CT of the neck with contrast. Transderm scopolamine patch for motion sickness for a cruise. See me in 6 months. Low-fat diet. We are trying to obtain her assistant softball coach records Pap smear and mammogram [email or web address] Not available 06/28/2024 21:20:08 Plan of Treatment Reminders Order Date Submit Date Provider Last Modified By Organization Details Last Modified Time Details Appointments ANY 15 2024 03:15P Sukhdev Bagley MD Not available Not available Not available Lab CBC w/ auto diff 2023 024 [facility], [address] [facility], [place], [address], 01/08/2024 00:29:51 CMP, serum or plasma 2023 024 [facility], [address] , [place], [address], 01/08/2024 00:29:50 lipid panel, serum 2023 024 [facility], [address], [place], [address], 01/08/2024 00:29:49 noninvasi ve colorecta l cancer DNA + occult blood screening , QL, stool 2023 024 [facility] (Cologuard Orders Only), [address], [address], [place], [address], 02/06/2024 07:11:23 HbA1c (hemoglob in A1c), blood 2023 024 [facility], [address], [place], [address], 01/08/2024 00:29:51 Referral None recorded. Procedures None recorded. Surgeries None recorded. Imaging US, thyroid 2024 025 [facility], [address], [place], [address], 08/05/2024 09:28:16 [place], modified barium swallow study 2024 025 [facility]), [address], [place], [address], 07/27/2024 11:14:25 Medication Orders Transderm -Scop 1 mg over 3 days transderm al patch 2024 025 [email or web address] [id number], [address], [place], [place], [address], 06/28/2024 21:09:31 Patient TargetsNo targets recorded. Patient Instructions Encounter Date Encounter Id Patient Instructions Last Modified By Organization Details Last Modified Time 06/28/2024 [id number] A healthy lifestyle: care instructions [email or web address] Not available 06/28/2024 21:09:31 Reason for Referral None Reported. Results Created Date Observation Date Name Description Value Unit Range Abnormal Flag Note LastModifiedBy Organization Detail LastModifiedTime 01/07/20 24 01/07/2024 LIPID PANEL , STAND JOSEPH cholesterol, total 204 mg/dL <200 high Not Available [facility] [address] [address] [place], [address], 01/08/2024 00:29:49 01/07/2001/07/2024 LIPID PANEL , STAND JOSEPH HDL cholesterol 49 mg/dL > or = 50 low Not Available [facility] [address] [address] [place], [address], 01/08/2024 00:29:49 01/07/2001/07/2024 LIPID PANEL , STAND JOSEPH triglyceride s 98 mg/dL <150 normal Not Available [facility] [address] [address] [place], [address], 01/08/2024 00:29:49 01/07/20 24 01/07/2024 LIPID PANEL [...] which is a valid ated novel jordi ac r accur acy than the Fried [place] equat ion in the estim ation of LDL-C . Dari serrano SS et al. SLIME. 2013; 310(1 9): 2061- 2068 (http ://ed ucati on.Qu [employer] com/f aq/FA Q164) Not Available [facility] [address] [address] , [place], [address], 01/08/2024 00:29:49 01/07/20 24 01/07/2024 LIPID PANEL , STAND JOSEPH chol/HDLC ratio 4.2 (calc ) <5.0 normal Not Available [facility] [address], [place], [address], 01/08/2024 00:29:49 01/07/20 24 01/07/2024 LIPID PANEL , STAND JOSEPH non HDL cholesterol 155 mg/dL _(anila c) <130 high For patie nts with diabe mukul plus 1 major ASCVD risk facto r, treat ing to a non-H DL-C goal of <100 mg/dL (LDL- C of <70 mg/dL ) is consi dered a thera peuti c optio n. Not Available [address], [address], 01/08/2024 00:29:49 01/07/20 24 01/07/2024 COMPR EHENS BERNARDO METAB OLIC PANEL glucose 89 mg/dL 65-99 normal Fasti ng refer ence inter hang Not Available [address], [address], 01/08/2024 00:29:50 01/07/20 24 01/07/2024 COMPR EHENS BERNARDO METAB OLIC PANEL urea nitrogen (BUN) 8 mg/dL 7-25 normal Not Available [address], [address], 01/08/2024 00:29:50 01/07/20 24 01/07/2024 COMPR EHENS BERNARDO METAB OLIC PANEL creatinine 0.69 mg/dL 0.50-1 .03 normal Not Available [address], [address], 01/08/2024 00:29:50 01/07/20 24 01/07/2024 COMPR EHENS BERNARDO METAB OLIC PANEL eGFR 106 mL/mi n/1.7 3m2 > or = 60 normal Not Available [facility] [address] [place], [address], 01/08/2024 00:29:50 01/07/20 24 01/07/2024 COMPR EHENS BERNARDO METAB OLIC PANEL BUN/creatini ne ratio SEE NOTE: (calc ) 6-22 Not Repor maury: BUN and Creat inine are withi n refer ence range . Not Available [address], [address], 01/08/2024 00:29:50 01/07/20 24 01/07/2024 COMPR EHENS BERNARDO METAB OLIC PANEL sodium 138 mmol/ L 135-14 6 normal Not Available [address], [address], 01/08/2024 00:29:50 01/07/20 24 01/07/2024 COMPR EHENS BERNARDO METAB OLIC PANEL potassium 3.9 mmol/ L 3.5-5. 3 normal Not Available [address], [address], 01/08/2024 00:29:50 01/07/20 24 01/07/2024 COMPR EHENS BERNARDO METAB OLIC PANEL chloride 106 mmol/ L 98-110 normal Not Available [address], [address], 01/08/2024 00:29:50 01/07/20 24 01/07/2024 COMPR EHENS BERNARDO METAB OLIC PANEL carbon dioxide 23 mmol/ L 20-32 normal Not Available [address], [address], 01/08/2024 00:29:50 01/07/20 24 01/07/2024 COMPR EHENS BERNARDO METAB OLIC PANEL calcium 9.4 mg/dL 8.6-10 .4 normal Not Available [address], [address], 01/08/2024 00:29:50 01/07/20 24 01/07/2024 COMPR EHENS BERNARDO METAB OLIC PANEL protein, total 6.5 g/dL 6.1-8. 1 normal Not Available [address] [address] [place], [address], 01/08/2024 00:29:50 01/07/20 24 01/07/2024 COMPR EHENS BERNARDO METAB OLIC PANEL albumin 4.4 g/dL 3.6-5. 1 normal Not Available [address], [address], 01/08/2024 00:29:50 01/07/20 24 01/07/2024 COMPR EHENS BERNARDO METAB OLIC PANEL globulin 2.1 g/dL_ (calc ) 1.9-3. 7 normal Not Available [address], [address], 01/08/2024 00:29:50 01/07/20 24 01/07/2024 COMPR EHENS BERNARDO METAB OLIC PANEL albumin/glob ulin ratio 2.1 (calc ) 1.0-2. 5 normal Not Available [address], [address], 01/08/2024 00:29:50 01/07/20 24 01/07/2024 COMPR EHENS BERNARDO METAB OLIC PANEL bilirubin, total 0.6 mg/dL 0.2-1. 2 normal Not Available [address], [address], 01/08/2024 00:29:50 01/07/20 24 01/07/2024 COMPR EHENS BERNARDO METAB OLIC PANEL alkaline phosphatase 59 U/L 37-153 normal Not Available [facility] [address] [address] [place], [address], 01/08/2024 00:29:50 01/07/20 24 01/07/2024 COMPR EHENS BERNARDO METAB OLIC PANEL AST 19 U/L 10-35 normal Not Available [address], [address], 01/08/2024 00:29:50 01/07/20 24 01/07/2024 COMPR EHENS BERNARDO METAB OLIC PANEL ALT 22 U/L 6-29 normal Not Available [address], [address], 01/08/2024 00:29:50 01/07/20 24 01/07/2024 CBC (INCL UDES DIFF/ PLT) white blood cell count 4.8 thous and/u L 3.8-10 .8 normal Not Available [address], [address], 01/08/2024 00:29:51 01/07/20 24 01/07/2024 CBC (INCL UDES DIFF/ PLT) red blood cell count 4.93 karine on/uL 3.80-5 .10 normal Not Available [address], [address], 01/08/2024 00:29:51 01/07/20 24 01/07/2024 CBC (INCL UDES DIFF/ PLT) hemoglobin 14.6 g/dL 11.7-1 5.5 normal Not Available [address], [address], 01/08/2024 00:29:51 01/07/20 24 01/07/2024 CBC (INCL UDES DIFF/ PLT) hematocrit 46.0 % 35.0-4 5.0 high Not Available [address], [address], 01/08/2024 00:29:51 01/07/20 24 01/07/2024 CBC (INCL UDES DIFF/ PLT) MCV 93.3 fL 80.0-1 00.0 normal Not Available [address], [address], 01/08/2024 00:29:51 01/07/20 24 01/07/2024 CBC (INCL UDES DIFF/ PLT) MCH 29.6 pg 27.0-3 3.0 normal Not Available [address], [address], 01/08/2024 00:29:51 01/07/20 24 01/07/2024 CBC (INCL UDES DIFF/ PLT) MCHC 31.7 g/dL 32.0-3 6.0 low Not Available [address], [address], 01/08/2024 00:29:51 01/07/20 24 01/07/2024 CBC (INCL UDES DIFF/ PLT) RDW 12.6 % 11.0-1 5.0 normal Not Available [address], [address], 01/08/2024 00:29:51 01/07/20 24 01/07/2024 CBC (INCL UDES DIFF/ PLT) platelet count 215 thous and/u L 140-40 0 normal Not Available [address], [address], 01/08/2024 00:29:51 01/07/20 24 01/07/2024 CBC (INCL UDES DIFF/ PLT) MPV 10.8 fL 7.5-12 .5 normal Not Available [address], [address], 01/08/2024 00:29:51 01/07/20 24 01/07/2024 CBC (INCL UDES DIFF/ PLT) absolute neutrophils 2803 cells /uL 1500-7 800 normal Not Available [facility] [address], [address], 01/08/2024 00:29:51 01/07/20 24 01/07/2024 CBC (INCL UDES DIFF/ PLT) absolute lymphocytes 1546 cells /uL 850-39 00 normal Not Available [address], [address], 01/08/2024 00:29:51 01/07/20 24 01/07/2024 CBC (INCL UDES DIFF/ PLT) absolute monocytes 293 cells /uL 200-95 0 normal Not Available [address], [address], 01/08/2024 00:29:51 01/07/20 24 01/07/2024 CBC (INCL UDES DIFF/ PLT) absolute eosinophils 139 cells /uL 15-500 normal Not Available [address], [address], 01/08/2024 00:29:51 01/07/20 24 01/07/2024 CBC (INCL UDES DIFF/ PLT) absolute basophils 19 cells /uL 0-200 normal Not Available [address], [address], 01/08/2024 00:29:51 01/07/20 24 01/07/2024 CBC (INCL UDES DIFF/ PLT) neutrophils 58.4 % normal Not Available [facility] [address], [address], 01/08/2024 00:29:51 01/07/20 24 01/07/2024 CBC (INCL UDES DIFF/ PLT) lymphocytes 32.2 % normal Not Available [address], [address], 01/08/2024 00:29:51 01/07/20 24 01/07/2024 CBC (INCL UDES DIFF/ PLT) monocytes 6.1 % normal Not Available [facility] [address], [address], 01/08/2024 00:29:51 01/07/20 24 01/07/2024 CBC (INCL UDES DIFF/ PLT) eosinophils 2.9 % normal Not Available [address], [address], 01/08/2024 00:29:51 01/07/20 24 01/07/2024 CBC (INCL UDES DIFF/ PLT) basophils 0.4 % normal Not Available [facility] [address] [address], [place], [address], 01/08/2024 00:29:51 01/07/20 24 01/07/2024 HEMOG LOBIN [...] of diabe mukul in child lis. Accor ding to Ameri can Diabe mukul Assoc iatio [...] platf orm. Effec tive , a dewayne mendez in test platf orms from the [facility] t [facility] tect to the Ute skyler c503 may have shift ed HbA1c resul ts ana red to histo rical resul ts. Based on labor atory valid ation testi ng condu cted at [facility] , the Ute platf orm relat bernardo to the [facility] [facility] t platf orm had an avera ge [...] is not recom duglas d. Not Available [facility] [address], [place], [address], 01/08/2024 00:29:51 02/01/20 24 02/01/2024 COLOG UARD cologuard result reportable NEGATI VE [...] ectiv e cross -sect ional study of ,00 0 [facility] risk for color ectal cance r [...] asymp tomat ic indiv idual s at [facility] risk for color ectal cance r. Follo [...] 112:1 016-1 030. TEST DESCR IPTIO N: [place] site algor ithmi c fernando sis of [...] years or older , who are at [facility] for color ectal cance r (CRC) . Colog uard has been appro tam for use by the U.[place]. FDA. The perfo rmanc e of Colog uard was estab lishe d in a cross secti onal study of [facility] adult s aged 50-84 . Colog uard perfo rmanc e in patie nts ages 45 to 49 years was estim ated by janet-g pj fernando sis of near- age group s. [...] of ,00 0 indiv idual s at [facility] risk for color ectal cance r who were scree favio with both Colog uard and colon oscop y. (Beena Hernandez et al, N Engl J Med 2014; 370(1 4):12 86-12 97.) Colog uard may produ ce a false negat bernarod or false posit bernardo resul t (no [...] d can be acces sed at the [facility] locat ion: www.e xactl abs.c om/re maite . Addit ional descr iptio n of the Colog uard test proce ss, warni ngs and preca ution s can be found at www.c ologu joseph.c om. Not Available [facility] (Cologuard Orders Only) [address], [place], [address], 02/06/2024 07:11:23 05/08/20 24 02/21/2019 pretty QUIJANO digit al, bilat eral No observ ation record ed. BARCODE Not Available 2023 20:07:20 05/08/20 24 02/17/2023 pretty QUIJANO digit al, bilat eral No observ ation record ed. BARCODE Not Available 2023 20:07:20 08/06/19 25 08/04/2024 US, thyro id No observ ation record ed. [facility] [address], [place], [address], 08/07/2024 12:33:45 08/06/19 25 08/04/2024 US, thyro id No observ ation record ed. [facility] [address], [place], [address], 08/07/2024 12:33:46 Result Notes None recorded. Problems Name Problem SNOMED Code Status Onset Date Resolution Date Notes Provider Name and Address Organization Details Recorded Time Lesion of neck 285611399 Active 2024 Low Ovalle [place] null, [place] [facility] 16:57:47 Motion sickness 31552659 Active 2024 Low Ovalle [place], [place] [facility] 16:57:48 Influenza vaccination declined 368910166 Active 2024 Ranjith Bagley MD Attn: Oz napier,[address] [facility], [place], [address], [place] [facility] 5 21:19:57 Tetanus vaccination declined by patient 847407790 Active 2024 Ranjith Bagley MD Attn: Oz napier,[address] [facility], [place], [address], [place] [facility] 5 21:19:58 HIV screening declined 4191216176025 00 Active 2024 Ranjith Bagley MD Attn: Oz napier,[address] [facility], [place], [address], [place] [facility] 5 21:20:00 Pneumococca l vaccination declined 775565176 Active 2024 Ranjith Bagley MD Attn: Oz napier,[address] [facility], [place], [address], [place] [facility] 5 21:20:04 Problem Notes None recorded. Procedures Surgical History Date Name Laterality Status Provider Name and Address Organization Details Recorded Time 05/10/19 04 Total hysterectomy completed Chiqui JAYE Maced[place] - [facility] 12/31/2023 12:36:58 05/10/18 97 Tubal Ligation completed Chiqui Macedo [place] - [facility] 12/31/2023 12:36:49 05/10/18 79 Tonsillectomy completed Chiqui Macedo [place] [facility] 12/31/2023 12:36:36 Imaging Results Imaging Date Name Status LastModified by Organiz ation Details LastModified Time 02/21/2019 MAMMO, screening, digital, bilateral completed [facility] Information not available 05/08/2024 20:07:20 02/17/2023 MAMMO, screening, digital, bilateral completed [facility] Information not available 05/08/2024 20:07:20 08/04/2024 US, thyroid completed [facility] [address] [place] [address] [place] [address], [address], 08/07/2024 12:33:45 08/04/2024 US, thyroid completed [facility] [address], [place], [address], 08/07/2024 12:33:46 Procedure Notes None recorded. Medical Equipment None [...] Updated DateTime 4 160.02 cm 28.6 kg/m2 64482.8 1 g 91 /min 98 % 98 % 130 mm[Hg] 70 mm[Hg] Chiqui Macedo [place] [facility] 4 12:39:45 Date Recorded Body height Body mass index (BMI) Body weight Heart rate Oxygen saturation Oxygen saturation in Arterial blood by Pulse oximetry Systolic blood pressure Diastolic blood pressure Provider Name and Address Organization Details Last Updated DateTime 5 160.02 cm 26.6 kg/m2 97492.8 6 g 84 /min 98 % 98 % 110 mm[Hg] 76 mm[Hg] Leida Figueroa MA [facility] 5 16:13:34 Social History Question Answer Notes LastModified by Organizat ion Details LastModified Time Tobacco Smoking Status Never Smoker Chiqui Macedo [place] null, [place] [facility] 12/31/2023 12:34:50 Do You Have An Advance [...] available 12/31/2023 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 [id number] Sleeping At Night Information not available 12/31/2023 [...] Response Coronary Artery Disease N Other N Atrial Fibrillation N High Blood Pressure N Thyroid Problems N Kidney or Bladder Problems N Depression N COPD N Blood Clots N GI Problems N Have you had a mammogram in the last yea r? N Skin Problems N Anemia N Heart Attack ([place]) N Diabetes N Anxiety Disorder N Muscle, Joint, or Bone Problems N Seizures/Epilepsy N Have you had a colonoscopy in the last 1 0 years? N Acid Reflux (GERD) N Cancer N Stroke N Allergies N Asthma N Have you had a PSA blood [...] PF, 30 mcg/0.3 mL dose 12/09/2020 completed JAYE [place] [facility] 06/28/2024 16:06:27 COVID-19, mRNA, LNP-S, PF, 30 mcg/0.3 mL dose, elmer-sucrose 06/17/2021 completed JAYE [place] - [facility] 06/28/2024 16:06:27 Past Encounters Encounter ID Performer Location Encounter Start Date Encounter Closed Date Diagnosis/Indication Diagnosis SNOMED-CT Code Diagnosis ICD10 Code Diagnosis Note [id number] MD Belen Marino (Adult Med) [address] [place] [address] 12/31/2023 12:01:36 12/31/2023 13:32:10 Obesity 632715849 E66.9 Diabetes m ellitus screening 745425390 Z13.1 Screening for cardiovascular system disease 416893653 Z13.6 Screening for malignant neoplasm of colon 216136111 Z12.11 [id number] [facility] [address] [place] [phone] 06/28/2024 15:51:45 06/28/2024 17:00:39 Body mass index 25-29 - overweight 928797341 Z68.26 Overweight 853690888 E66 .3 Lesion of neck 343037430 L98.9 Motion sickness 33598450 T75.3XXA Pneumococc al vaccination declined 595304255 Z28.21 HIV screen ing declined 8481943895 93546 Z53.20 Tetanus va ccination declined by patient 809626353 Z28.21 Influenza vaccination declined 511008629 Z28.21 Health Concerns Section Related Observation LastModified by Organization Detai ls LastModified Time None Recorded Concern Status LastModified by Organization Details LastModified Time None Recorded Advance Directives Directive N: Payers Encounter Date Sequence Insurance Name Policy Number Policy Oshea Covered Member ID Oshea Member ID Guarantor Name 12/31/2023 1 [facility] [id number] Sandy Dan [id number] Sandy Dan 06/28/2024 1 [facility] [id number] Sandy Dan [id number] Sandy Dan Notes Date Note Type Note Provider Name and Address Organization Details Recorded Time 12/31/2023 text/html 48-year-old come s in reestablishing care obesity taking generic semaglutide has lost about 30 or 40 lb also taking some B12 injection meds semaglutide and B12 denies allergies surgeries family history of hypertension mild alcohol use no tobacco Ranjith Bagley MD Attn: Accounting,[address] [facility], [place], [address], [facility] 01/01/2024 12:27:04 06/28/2024 text/html hyperlipidemia i s [...] inhibitors Ranjith Bagley MD Attn: Accounting[address] [facility], [place], [address], [facility] 06/28/2024 21:20:28 OBGyn Episode No OBEpisode recorded.
--- OUTSIDE RECORDS SUMMARY | 2024-08-15 09:29 | XMS_ITS | CONTINUITY OF CARE DOCUMENT ---
Author Name lavon doll Address Unknown Organization [facility] Address [id number] [place] [address] [address] [place] [address] Phone [phone] Care Team Providers Care Scrap Piler Name Role Phone Reid HACKETT, Paulo Unavailable [phone] RANJITH SMALLWOOD MD Unavailable RANJITH SMALLWOOD MD Unavailable PROBLEMS Condition Status Date Provider Notes Chest pain active [employer] Payer name Policy type / Coverage type [place] [employer] party ID [facility] Blue [facility] [id number] HISTORY OF PROCEDURES Procedure Date Procedure Name Provider Procedure Notes S tatus Event Monitor Paulo mendiola
--- NOTE | 2024-08-15 10:15 | REHSTMBS ---
Assessment and note entered by Dorita Ko, [employer] Modified Barium Swallow Evaluation Feeding Type Recommended Oral Food Consistency Regular, Level 7 Liquid Consistency Thin (0) ST Clinical Summary The above pleasant and cooperative pt was seen for an outpatient modified barium swallow. She was alert & oriented, and able to follow commands. She is currently on a regular diet and reports difficulty in that if feels like food/liquid is not going straight down through her throat. she denied coughing or choking associated with liquids or solids but is concerned since she is taking semaglutide. Oral mucosa is normal; natural dentition is in good condition; she was able to dry swallow on command and exhibited a strong cough and clear vocal quality. The patient was positioned in a lateral view and presented with 5cc of thin liquid barium via spoon , pudding consistency barium via a spoon, cracker coated with barium pudding via spoon, and uncontrolled thin liquid barium. This was presented via a cup & straw. The pt was also positioned for an A/P view and presented with an uncontrolled trial of thin liquid barium via a straw. Oral preparatory and oral phase symptoms: none. Pharyngeal phase symptoms: none. Esophageal stage symptoms: none. Overall, no aspiration occurred. Impressions: Normal swallow Ability Recommendations: regular diet No further ST is warranted at this time.
== END 2024-08-15 08:58 | disposition home or self-care (01) ==
PROVIDERS: PCP Internal Medicine; Visit Provider Internal Medicine
DX: L98.9 Disorder of the skin and subcutaneous tissue, unspecified (principal)
CPT/HCPCS: 92611